=== PATIENT | female | born 1955 | race Caucasian/White ===

== ENCOUNTER 2018-05-22 20:56 | Emergency (ER) | payer OTHER, MEDICAID ==
[~2018-05-22] VITALS: Ht 157.5 cm; Wt 68.6 kg
[2018-05-22 21:25] VITALS: BP 130/73
--- NOTE | 2018-05-22 21:28 | NUR ---
BIB WHEELCHAIR TO ER BED 3
--- NOTE | 2018-05-22 21:28 | NUR ---
PT PRESENTS TO ED WITH C/O HIGH BLOOD SUGER AND UNABLE TO CONTROLL AT [place] WITH HOME MEDS. PT PUT ON PREDNISONE X3 DAYS AGO FOR SYNCOPE FROM [facility]. PT ALSO C/O BILAT EAR PAIN AND BILAT BREAST PAIN 8/10 PAIN. VSS. A&OX4. ER MD AWARE. CONTINUE TO MONITOR.
[2018-05-22] MEDS ORDERED: NACL 0.9% 500 ML IV ONE (21:55)
[2018-05-22 22:28] LABS: BASOPHILS # (AUTO) 0.1 K/uL (0.00-0.22); BASOPHILS % (AUTO) 0.5 % (0.0-2.0); EOSINOPHILS # (AUTO) 0.2 K/uL (0-0.4); EOSINOPHILS % (AUTO) 1.5 % (0.0-4.0); HEMATOCRIT 35.3 % (36-48); HEMOGLOBIN 11.4 g/dL (12.0-16.0); LYMPHOCYTES # (AUTO) 1.5 K/uL (2.5-16.5); LYMPHOCYTES % (AUTO) 15.5 % (20.5-51.1); MEAN CORPUSCULAR HEMOGLOBIN 29 pg (27-31); MEAN CORPUSCULAR HGB CONC 32 g/dL (33-37); MEAN CORPUSCULAR VOLUME 90.3 fL (80-94); MONOCYTES # (AUTO) 0.8 K/uL (0.8-1.0); MONOCYTES % (AUTO) 7.7 % (1.7-9.3); NEUTROPHILS # (AUTO) 7.4 K/uL (1.8-7.7); NEUTROPHILS % (AUTO) 74.8 % (42.2-75.2); PLATELET COUNT (AUTO) 313 K/uL (140-450); RED BLOOD CELL COUNT(AUTO) 3.91 MIL/uL (4.20-5.40); RED CELL DISTRIBUTION WIDTH 17.1 % (11.6-13.7); WHITE BLOOD COUNT (AUTO) 9.9 K/uL (4.8-10.8)
[2018-05-22 22:44] LABS: ANION GAP 12.3 (8-16); ASPARTATE AMINOTRANSFERASE 12 U/L (15-37); CARBON DIOXIDE 28.9 mmol/L (21-32); CHLORIDE 89 mmol/L (98-107); GFR ARICAN-AMERICAN 8 mL/min (>90); POTASSIUM 4.2 mmol/L (3.5-5.1); SODIUM SERUM 126 mmol/L (136-145); TOTAL BILIRUBIN 0.4 mg/dL (0.0-1.0)
[2018-05-22 22:45] LABS: ACETONE, SERUM NEGATIVE (NEGATIVE)
[2018-05-22 22:48] LABS: GLUCOSE 558 mg/dL (74-106); UREA NITROGEN, BLOOD 73 mg/dL (7-18)
[2018-05-22 22:49] LABS: CREATININE 7.1 mg/dL (0.6-1.3)
[2018-05-22] MEDS ORDERED: INSULIN REGULAR, HUMAN 100 UNIT/ML VIAL IVP ONE (23:05)
[2018-05-22 23:31] VITALS: BP 131/77
--- NOTE | 2018-05-22 23:31 | NUR ---
Patient discharged with v/s stable. Written and verbal after care instructions given and explained. Patient verbalized understanding. Escorted to vehicle by wheel chair. All questions addressed prior to discharge. Advised to follow up with PMD.
== END 2018-05-22 23:31 | disposition home or self-care (01) ==
LOC: MED 20:56
DX: E11.65 Type 2 diabetes mellitus with hyperglycemia (principal); I10 Essential (primary) hypertension
CPT/HCPCS: 36415; 80053; 82009; 85025; 96360; 96372; 99283; J1815; J7030